=== PATIENT | male | born 1980 | race Caucasian/White ===

== ENCOUNTER 2019-02-15 12:54 | Day surgery (SDC) | payer OTHER ==
[2019-02-14 17:36] VITALS: BMI 22.8
[2019-02-15] MEDS ORDERED: LIDOCAINE HCL/PF 2% SDV 5ML VIAL ONE (13:04)
[2019-02-15] MEDS ORDERED: SODIUM CHLORIDE 0.9% P/F 10 ML VIAL IJ ONE (13:04)
[2019-02-15] MEDS ORDERED: DEXAMETHASONE SOD PHOSPHATE 4 MG/1 ML VIAL ONE (13:04)
[2019-02-15] MEDS ORDERED: KETOROLAC TROMETHAMINE 30 MG/1 ML VIAL ONE (13:04)
[2019-02-15] MEDS ORDERED: ceFAZolin SODIUM 1 GM VIAL ONE (13:04)
[2019-02-15] MEDS ORDERED: PROPOFOL 20 ML ONE ×2 (13:06→14:06)
[2019-02-15] MEDS ORDERED: MIDAZOLAM HCL 2 MG/2 ML SINGLE DOSE VIAL ONE (13:19)
--- NOTE | 2019-02-15 13:50 | HP ---
History & Physical Update - History History: No Change - Physical Physical: No Change - Assessment Assessment: No Change - Plan Plan: No Change
[2019-02-15] MEDS ORDERED: ACETAMINOPHEN 1000 MG/100 ML VIAL (NON FORMULARY) IVPB ONE (13:51)
[2019-02-15] MEDS ORDERED: LIDOCAINE HCL 1%, 10 MG/ML (20ML VIAL) ONE (13:52)
[2019-02-15] MEDS ORDERED: ceFAZolin 2 GRAM PREMIX BAG IVPB ONE ×2 (13:58→14:00)
[2019-02-15] MEDS ORDERED: KETAMINE HCL 200 MG/20 ML VIAL ONE (14:04)
[2019-02-15] MEDS ORDERED: LIDOCAINE HCL 1%, 10 MG/ML (20ML VIAL) NR ONE ×3 (14:09)
[2019-02-15] MEDS ORDERED: EPHEDRINE SULFATE/0.9% NACL/PF 50 MG/10 ML SYRINGE NR ONE (14:18)
--- NOTE | 2019-02-15 14:51 | SURG ---
Surgery Sericulture Teacher Note Sericulture Teacher: Peyton Parish PA-C (Suzy) Date of Service: 02/15/19 Diagnosis: Bilateral spermatocele Procedure: Bilateral spermatocelectomy I was present for the entirety of the operative procedure. For further detail, please refer to operative report. Visit type - Case Type Case Type: Scheduled - Emergency Emergency Visit: No - New patient This patient is new to me today: Yes Date on this admission: 02/15/19 - Critical Care Critical Care patient: No
--- NOTE | 2019-02-15 14:53 | OP ---
Operative Note - Note: Operative Date: 02/15/19 Pre-Operative Diagnosis: Bilateral spermatocele Operation: Bilateral spermatocelectomy Findings: as dictated Post-Operative Diagnosis: Same as Pre-op Surgeon: Srinivasa Darling Sales [employer]ater[employer] Coordinator: Peyton Parish Anesthesiologist/SEAM HAMMERER: Elder Coughlin Anesthesia: General, Local (.25% Marcaine 3cc injected at start of case) Specimens Removed: bilateral spermatocele Estimated Blood Loss (mls): 5 Fluid Volume Replaced (mls): 700 (ml LR) Operative Report Dictated: Yes
[2019-02-15] MEDS ORDERED: ONDANSETRON 4 MG/2 ML VIAL IVPUSH PRN (15:03)
[2019-02-15] MEDS ORDERED: LACTATED RINGERS SOLUTION 1,000 ML IV SCH (15:15)
[2019-02-15] MEDS ORDERED: oxyCODONE HCL 5 MG TABLET ONE (16:15)
[2019-02-15 17:58] VITALS: BP 110/70; PULSE 68; TEMP 97.8
[2019-02-15] MEDS ORDERED: IBUPROFEN 800 MG/8 ML IJ IVPB SCH (18:00)
--- NOTE | 2019-02-19 15:51 | OP ---
DATE OF OPERATION: 02/15/2019 PREOPERATIVE DIAGNOSIS: Bilateral testicular pain, bilateral spermatoceles. POSTOPERATIVE DIAGNOSIS: Bilateral testicular pain, bilateral spermatoceles. PROCEDURE: Excision of bilateral spermatoceles. SPECIMENS: Bilateral spermatoceles. ESTIMATED BLOOD LOSS: Minimal. FOOD AIDE: NAV Gomes SURGEON: Srinivasa Darling MD PREOPERATIVE INDICATIONS: The patient is a 38-year-old male who underwent vasectomy several years ago. He has developed spermatoceles at the site of the vasectomy, which are painful to touch. Conservative therapies including oral medications and injections have not been effective. He wishes to have them removed. OPERATION: The patient was brought to the OR, placed on the table in the supine position. His groin was prepped and draped sterilely and timeout was performed. A transverse incision was made at the level of the testicles across the median raphe. On the left side, the spermatocele was brought out through the incision. This was clamped on both sides and excised. The superior aspects of the remaining vas deferens was oversewn, the inferior was left open. No bleeding was seen. A similar thing was done on the right side. Again, spermatocele was found and brought through the incision. This was clamped and excised. Again the superior portion of the vas was oversewn, the inferior portion was left open, with no bleeding seen. The skin was then closed in 2 layers using 3-0 Vicryl suture as well. The wound was dressed. The patient was woken up. Ashley [id number]
--- NOTE | 2019-02-20 17:10 | PATH ---
Surgical Pathology Report Patient Name: MARY RODRIGUEZ Med. Rec. #: [id number] /Age/Gender: 1980 (Age: 38) / M Account: [id number] Location: [facility] SURGICAL Taken: 02/15/2019 Received: 02/16/2019 Reported: 02/20/2019 Physicians: Srinivasa Darling M.D. Specimen(s) Received A: LEFT SPERMATOCELE B: RIGHT SPERMATOCELE Clinical History Bilateral spermatocele Final Diagnosis A. LEFT SPERMATOCELE, EXCISION: CONSISTENT WITH VASITIS NODOSA. SEE COMMENT. B. RIGHT SPERMATOCELE, EXCISION: CONSISTENT WITH VASITIS NODOSA. SEE COMMENT. Comment: Proliferating ductules containing spermatozoa in wall of vas deferens with granuloma and chronic inflammation, consistent with vasitis nodosa. Electronically Signed Ambrocio Tyler M.D. Gross Description A. Received in formalin labeled "left spermatocele," is a 1.4 x 1.0 x 0.7 cm wilson-matson, irregular portion of firm tissue. Sectioning reveals a 0.6 cm in greatest dimension wilson, firm nodule. The specimen is inked green, trisected and entirely submitted in one cassette. B. Received in formalin labeled "right spermatocele," is a 1.4 x 0.8 x 0.8 cm wilson-matson, irregular portion of firm tissue. Sectioning reveals a 0.7 cm in greatest dimension wilson, firm nodule. The specimen is inked green, serially sectioned and entirely submitted in one cassette. /02/16/2019 saudi02/16/2019
== END 2019-02-15 18:02 | disposition home or self-care (01) ==
LOC: JASU-SURG 12:54
PROVIDERS: ATTEND Urology
PROC: 0VBL0ZZ Excision of Bilateral Epididymis, Open Approach (ICD-10-PCS; principal; 2019-02-15 14:00)
DX: N43.42 Spermatocele of epididymis, multiple (principal); N50.811 Right testicular pain; N50.812 Left testicular pain
CPT/HCPCS: 88305-TC; 94760; J0131